=== PATIENT | male | born 1935 | race Native Hawaiian/Other Pacific Islander ===

== ENCOUNTER 2018-07-26 13:23 | Emergency (ER) | payer OTHER ==
[~2018-07-26] VITALS: Ht 175.3 cm; Wt 60.3 kg
[2018-07-26 13:29] VITALS: BP 139/92; TEMP 98
[2018-07-26 17:20] LABS: PLATELET COUNT 201 K/uL (142-355)
[2018-07-26 17:30] LABS: POTASSIUM 4.9 mmol/L (3.6-5.2)
[2018-07-26] MEDS ORDERED: ATEN50TA36 PO (20:26)
[2018-07-26] MEDS ORDERED: VENL37.511 PO (20:27)
[2018-07-26] MEDS ORDERED: DILT30TA24 PO (20:27)
[2018-07-26] MEDS ORDERED: TAMS0.4C PO (20:28)
[2018-07-26] MEDS ORDERED: VICODIN ES1 TA1 PO (20:29)
[2018-07-26] MEDS ORDERED: KEPPRA1000 MG PO (20:32)
[2018-07-26] MEDS ORDERED: MIRTAZAPINE7.5 MG PO (20:33)
[2018-07-26] MEDS ORDERED: RISPERDAL12.5 MG IM (20:33)
[2018-07-26] MEDS ORDERED: LEVO0.0218 PO (20:34)
[2018-07-26] MEDS ORDERED: TRAZ50TA36 PO (20:35)
== END 2018-07-26 18:50 | disposition other institution (70) ==
LOC: ED 13:23
PROVIDERS: Emergency Medicine
DX: Z04.6 Encounter for general psychiatric examination, requested by authority (principal); G40.802 Other epilepsy, not intractable, without status epilepticus; I10 Essential (primary) hypertension; E03.8 Other specified hypothyroidism
CPT/HCPCS: 36415; 80053; 85027; 99285; J1630

== ENCOUNTER 2018-07-28 21:05 | Inpatient (IN) | payer OTHER ==
[~2018-07-28] VITALS: Ht 172.7 cm; Wt 62.3 kg
[~2018-07-28 21:05] MED LIST: ATEN50TA36 PO; DILT30TA24 PO; KEPPRA1000 MG PO; LEVO0.0218 PO; MIRTAZAPINE7.5 MG PO; RISPERDAL12.5 MG IM; TAMS0.4C PO; TRAZ50TA36 PO; VENL37.511 PO; VICODIN ES1 TA1 PO
[2018-07-28] MEDS ORDERED: REMERON 15MG TAB PO (22:12)
[2018-07-28] MEDS ORDERED: LORA2INJ21 IM (22:13)
[2018-07-28] MEDS ORDERED: OLAN10INJ IM (22:14)
[2018-07-28] MEDS ORDERED: RISP0.25 PO (22:14)
[2018-07-28 23:40] VITALS: BP 81/53; TEMP 97.4
[2018-07-29] VITALS (10 sets, daily range): BP systolic 93–104; BP diastolic 55–72; TEMP 97.7–98.1; Ht 172.7 cm; Wt 62.3 kg
[2018-07-29 04:53] LABS: PLATELET COUNT 166 K/uL (142-355)
[2018-07-29 05:21] LABS: POTASSIUM 4.6 mmol/L (3.6-5.2)
[2018-07-30 00:15] VITALS: BP 100/65; TEMP 97.5
[2018-07-30 04:00] VITALS: BP 122/68; TEMP 97.1
[2018-07-30 05:35] LABS: PLATELET COUNT 170 K/uL (142-355)
[2018-07-30 05:48] LABS: POTASSIUM 3.9 mmol/L (3.6-5.2)
[2018-07-30 08:13] VITALS: BP 132/82; TEMP 98.1
[2018-07-30 12:30] VITALS: BP 136/85; TEMP 97.9
[2018-07-30 16:01] VITALS: BP 117/74; TEMP 98.2
[2018-07-30 20:19] VITALS: BP 115/52; TEMP 97.7
[2018-07-31] VITALS: BP 110/65; TEMP 98.4
[2018-07-31 04:00] VITALS: BP 118/58; TEMP 98.4
[2018-07-31 08:00] VITALS: BP 113/63; TEMP 97.8
[2018-07-31 12:00] VITALS: BP 107/55; TEMP 97.8
[2018-07-31 16:00] VITALS: BP 114/62; TEMP 97.9
[2018-07-31 20:00] VITALS: BP 118/76; TEMP 98.8
[2018-08-01] VITALS: BP 120/70; TEMP 98.8
[2018-08-01 03:58] VITALS: BP 101/55
[2018-08-01 08:05] VITALS: BP 123/74; TEMP 99.9
[2018-08-01] MEDS ORDERED: DOCU100C10 PO (10:48)
[2018-08-01] MEDS ORDERED: CIPRO500 MG PO (10:55)
[2018-08-01 12:19] VITALS: BP 102/51; TEMP 98.4
== END 2018-08-01 14:43 | DRG 315 ==
LOC: ICU 21:05 → MED/SURG 07-29 07:58
PROVIDERS: ADMIT Family Medicine
DX: I95.89 Other hypotension (principal); N39.0 Urinary tract infection, site not specified; G40.802 Other epilepsy, not intractable, without status epilepticus; B96.20 Unspecified Escherichia coli [E. coli] as the cause of diseases classified elsewhere; I48.91 Unspecified atrial fibrillation; D64.89 Other specified anemias; N40.0 Benign prostatic hyperplasia without lower urinary tract symptoms; I50.9 Heart failure, unspecified; K59.09 Other constipation; K22.4 Dyskinesia of esophagus; E03.8 Other specified hypothyroidism; R13.12 Dysphagia, oropharyngeal phase
CPT/HCPCS: 36415; 80053; 81000; 82550; 84484; 85027; 93005; 94760; J0696; J1650; J3490